=== PATIENT | female | born 1995 | race Caucasian/White ===

== ENCOUNTER 2022-02-10 14:10 | Emergency (ER) | payer OTHER, SELFPAY ==
--- NOTE | ~2022-02-10 | XR_ITS ---
EXAMINATION: XR CHEST CLINICAL INFORMATION: Shortness of breath and cough COMPARISON: None TECHNIQUE: 2 views of the chest were obtained. FINDINGS: No significant abnormality is noted involving the heart, lungs, mediastinum, bony thorax or soft tissues. XR/XR chest 2V IMPRESSION: Unremarkable examination.
[2022-02-10 14:44] VITALS: BP 108/66; PULSE 78; RESP 18; TEMP 36.3; O2SAT 100; BMI 26.6
--- NOTE | 2022-02-10 16:20 | ED.URI ---
HPI - URI/Sore Throat General Chief Complaint: Upper Respiratory Symptoms Stated Complaint: diff breathing allergy attack Time Seen by Provider: 02/10/22 16:19 Source: patient Mode of arrival: ambulatory Limitations: no limitations History of Present Illness HPI Narrative: 26-year-old female with history of seasonal allergies comes in with several days of increased URI symptoms and allergy symptoms including dry cough, shortness of breath, sneezing, pain in her tonsils and lungs. She Takes Benadryl as needed for her allergy symptoms. She reports previously being on Claritin with good effect when she lives in [facility] she has not been able to see her doctor since she moved up here. She reports a history of mild intermittent asthma and ran out of her albuterol nebulizer treatments. She thinks she may have some intermittent wheezing and reports shortness of breath when her allergy symptoms flare up especially at nighttime. She denies any fever or chills. She has some nasal congestion with clear discharge. She also reports watery runny eyes. MD elicited complaint: cough, sore throat and nasal congestion Pertinent past history: seasonal allergies Onset (ago): day(s) Consistency: constant Severity: moderate Description of mucous: clear and watery Able to tolerate fluids by mouth: Yes Exacerbating factors: nothing Relieving factors: OTC cold medicine Associated symptoms: headache, nasal congestion, sore throat, cough, chest pain and shortness of breath Treatments prior to arrival: none Related Data Previous Rx's Medication Instructions Recorded albuterol sulfate 0.63 mg/3 mL 0.63 mg (3 mL) INHALATION QID PRN 02/10/22 solution for nebulization #75 ml fluticasone propionate 50 1 spray INTRANASAL BID #16 g 02/10/22 mcg/actuation nasal spray,suspension (Children's Flonase Allergy Relief) loratadine 10 mg tablet 10 mg PO Q24H #30 tab 02/10/22 Allergies Allergy/AdvReac Type Severity Reaction Status Date / Time bee pollen [bee stings] Allergy Anaphylaxis Verified 02/10/22 14:48 cinnamon Allergy Anaphylaxis Verified 02/10/22 14:48 latex Allergy Hives Verified 02/10/22 14:43 Review of Systems Review of Systems: Constitutional: No Fever, No Chills ENT/Mouth: + sore throat, No Rhinorrhea, No Swallowing Difficulty Eyes: No Eye Pain, No Swelling, No Redness Cardiovascular: No Chest Pain, + SOB, No Orthopnea, No Edema Respiratory: + Cough, No Sputum, No Wheezing, No dyspnea Gastrointestinal: No Nausea, No Vomiting, No Diarrhea, No abdominal Pain Musculoskeletal: No joint pain, No Myalgias Skin: No Skin Lesions, No rash Neuro: No Weakness, No Numbness, No Dizziness, + Headache Psych: No Anxiety/Panic, No Depression Heme/Lymph: No Bruising, No Lymphadenopathy PMFSH Past Medical History Medical History (Updated 02/10/22 @ 17:16 by FERMÍN Robison) Asthma Environmental allergies Palpitations Social History Social History Advance Directives: No Advance Directives Information Provided: No Patient : No Physical Exam Vital Signs: Vital Signs: Last Vital Signs Temp 97.4 F 02/10/22 14:44 Pulse 78 02/10/22 14:44 Resp 18 02/10/22 14:44 BP 108/66 02/10/22 14:44 Pulse Ox 100 02/10/22 14:44 BMI result Body Mass Index 26.6 Appearance: Alert. Oriented X3. No acute distress. Eyes: Pupils equal, round and reactive to light. ENT: Pharynx With moist mucous membranes, bilateral tonsillar enlargement with bilateral exudates. Uvula midline. Normal voice. Handling secretions normally.. normal tympanic membranes bilaterally. Clear nasal discharge, nasal turbinates slightly erythematous. Neck: Normal inspection. Neck supple. No LAD CVS: Normal heart rate and rhythm. Pulses normal. Respiratory: No respiratory distress. Breath sounds normal. Skin: Skin warm and dry. Normal skin color. Normal skin turgor. No rashes. Extremities: No lower extremity edema. Neuro: Oriented X 3. Grossly normal, nonfocal Course Course Course Narrative: 26-year-old female with a history of mild intermittent asthma and seasonal allergies presents to the ER with shortness of breath, coughing, wheezing, watery eyes, sore throat. She is nontoxic appearing as normal vital signs on arrival. Her lungs are clear. She has bilateral tonsillar enlargement & exudates concerning for possible strep throat. Will check flu and COVID as well as chest x-ray. Reevaluation(s) Reevaluation #1: CXR clear. MDM - URI/Sore Throat Lab Data Labs: Lab Results 02/10/22 02/10/22 02/10/22 Range/Units 17:14 17:14 17:14 COVID-19 ([facility]) Negative (Negative) COVID-19 Clin Com See Note Influenza Type A ([facility]) Negative (Negative) Influenza Type B ([facility]) Negative (Negative) Influenza A & B Note See Note S. pyogenes GrpA [facility] Negative (Negative) Discharge Plan Discharge Clinical Impression: Pharyngitis, Allergic rhinitis Patient Disposition: Home, Self-Care Instructions: Allergic Rhinitis (DC), Allergies (ED) Additional Instructions: your chest x-ray today was normal. You are negative for strep throat, COVID and influenza. Take the prescribed oral allergy medication once a day for the next 30 days. See your doctor for refills. Also recommend taking the prescribed intranasal steroid for your allergies. Use the prescribed albuterol nebulizer treatments as needed for shortness of breath and wheezing. Your insurance does not cover an albuterol inhaler without prior authorization and this needs to be done by your primary care doctor. Recommend following up with them. If you develop new or worsening symptoms call 911 or come back to the ER for further evaluation. Prescriptions: New loratadine 10 mg tablet 10 mg PO Q24H Qty: 30 0RF albuterol sulfate 0.63 mg/3 mL solution for nebulization 0.63 mg inhalation QID PRN (Reason: shortness of breath or wheezing) Qty: 75 0RF fluticasone propionate [Children's Flonase Allergy Rlf] 50 mcg/actuation spray,suspension 1 spray intranasal BID Qty: 16 0RF Rx Instructions: administer into each nostril
[2022-02-10 17:32] LABS: Strep A Nucleic Acid Negative (Negative)
[2022-02-10 17:34] LABS: COVID-19 Test Negative (Negative); IDNOW Serial# 16C4AD1C; Influenza A Negative (Negative); Influenza B2 Negative (Negative)
== END 2022-02-10 17:58 | disposition home or self-care (01) ==
PROVIDERS: Physician Assistant; Emergency Provider Emergency Medicine Emergency Medical Services; PCP Physician Assistant
DX: J02.9 Acute pharyngitis, unspecified (principal); J45.20 Mild intermittent asthma, uncomplicated; Z20.822 Contact with and (suspected) exposure to COVID-19
CPT/HCPCS: 36415; 71046; 87502; 87635; 87651; 99283